=== PATIENT | male | born 1935 | race Caucasian/White ===

== ENCOUNTER 2016-06-21 13:02 | Emergency (ER) | payer MEDICARE, OTHER ==
[~2016-06-21 13:02] MED LIST: ADVAIR 250-501 EACH IH; ALBUTEROL2.5 MG/3 M INH; AZOR 10-40 MG1 EACH PO; CEPHALEXIN500 M1 PO; CEPHALEXIN500 MG PO; CITALOPRAM HBR20 MG PO; CYANOCOBAL1000 MCG/M IM; DOCUSATE SODIU100 MG PO; HYDROXYZINE HCL10 MG PO; K-DUR20 MEQ PO; LEVOTHYROXINE50 MCG PO; MECLIZINE HCL25 MG PO; METFORMIN HCL500 M2 PO; NEXIUM40 MG PO; NICODERM 7MG PAT1 EA TD; OXYCODONE-ACET1 EACH PO; PLAVIX75 MG PO; SIMVASTATIN20 MG PO; SPIRIVA18 MCG INH; SPIRONOLACTONE25 MG PO; TAMSULOSIN HCL0.4 MG PO; TUDORZA PRESS400 MCG INH; VESICARE5 MG PO
== END 2016-06-21 14:45 | disposition other institution (70) ==
LOC: ER 13:02
DX: I50.9 Heart failure, unspecified (principal); I48.91 Unspecified atrial fibrillation; I51.7 Cardiomegaly; I73.9 Peripheral vascular disease, unspecified; I49.3 Ventricular premature depolarization; E66.01 Morbid (severe) obesity due to excess calories; I25.10 Atherosclerotic heart disease of native coronary artery without angina pectoris; I25.2 Old myocardial infarction; J44.9 Chronic obstructive pulmonary disease, unspecified; F17.220 Nicotine dependence, chewing tobacco, uncomplicated
CPT/HCPCS: 99284; 99285-25

== ENCOUNTER 2016-08-02 13:28 | Emergency (ER) | payer MEDICARE, OTHER ==
[2016-08-02 14:05] LABS: BASO % 0.3 % (0.2-1.2); EOS # 0.2 10_X3_uL (0.0-0.5); GRAN # 11.9 10_X3_uL (1.8-5.4); GRAN % 76.6 % (34.0-67.9); LYMPH # 2.3 10_X3_uL (1.3-3.6); MEAN CORPUSCULAR HEMOGLOBIN 26.8 pg (27.0-33.0); MEAN CORPUSCULAR HGB CONC 31.4 g/dL (32.0-36.0); MEAN CORPUSCULAR VOLUME 85.4 fL (79-92); MEAN PLATELET VOLUME 11.3 fl (7.5-11.5); MONO # 1.1 10_X3_uL (0.3-0.8); MONO % 7.1 % (5.3-12.2); PLATELET COUNT 251 x10_3/uL (163-337); WHITE BLOOD COUNT 15.6 x10_3/uL (4.2-9.1)
[2016-08-02 14:23] LABS: INR 1.1 (0.9-1.1); PARTIAL THROMBOPLASTIN TIME 23.3 SECONDS (21.3-29.3)
== END 2016-08-02 17:59 | disposition short-term general hospital (02) ==
LOC: ER 13:28
PROVIDERS: General Practice
DX: K62.5 Hemorrhage of anus and rectum (principal); Z79.01 Long term (current) use of anticoagulants; I50.9 Heart failure, unspecified; K21.9 Gastro-esophageal reflux disease without esophagitis; Z86.73 Personal history of transient ischemic attack (TIA), and cerebral infarction without residual deficits; J44.9 Chronic obstructive pulmonary disease, unspecified; I10 Essential (primary) hypertension; F41.9 Anxiety disorder, unspecified; E03.9 Hypothyroidism, unspecified; Z79.899 Other long term (current) drug therapy
CPT/HCPCS: 36415; 85025; 85610; 85730; 86850; 86900; 86901; 86920; 96361; 96374; 99070; 99284; 99284-25